=== PATIENT | female | born 1970 | race Asian ===

== ENCOUNTER 2019-03-08 12:34 | Emergency (ER) | payer OTHER ==
[~2019-03-08] VITALS: Ht 152.4 cm; Wt 54.0 kg
--- NOTE | 2019-03-08 14:42 | PHYS DOC ---
Past Medical History Past Medical History: No Pertinent History Alcohol Use: None Drug Use: None Adult General Chief Complaint Chief Complaint: ABDOMINAL PAIN HPI HPI Patient is a 48 year old patient without history of medical problems who p resents with pain of abdominal pain. Patient complaining of intermittent episodes of right lower quadrant as a discomfort feeling for the last 1 week that usually last for several hours and radiated to her back. Patient complaining of anorexia without fever, urinary symptoms, diarrhea and constipati on, nausea and vomiting, history of the same problem. Patient complaining of upper respiratory symptoms including cough and nasal congestion and sore throat for the last 4 or 5 days and states the pain getting worse with cough and movement. Patient rated her pain between 6 and 10. Review of Systems Review of Systems Constitutional: Denies fever or chills [] Eyes: Denies change in visual acuity, redness, or eye pain [] HENT: Postnasal congestion or sore throat Respiratory: Reports cough, denies shortness of breath Cardiovascular: No additional information not addressed in HPI [] GI: Reports abdominal pain, denies nausea, vomiting, bloody stools or diarrhea [] : Denies dysuria or hematuria [] Musculoskeletal: Denies back pain or joint pain [] Integument: Denies rash or skin lesions [] Neurologic: Denies headache, focal weakness or sensory changes [] Endocrine: Denies polyuria or polydipsia [] All other systems were reviewed and found to be within normal limits, except as documented in this note. Current Medications Current Medications Current Medications Medications (Trade) Dose Ordered Sig/Jett Start Time Stop Time Status Last Admin Dose Admin Ketorolac Tromethamine (Toradol 30mg Vial) 30 mg 1X ONCE 03/08/19 15:00 03/08/19 15:01 DC 03/08/19 15:33 30 MG Ondansetron HCl (Zofran) 4 mg 1X ONCE 03/08/19 15:00 03/08/19 15:01 DC 03/08/19 15:33 4 MG Sodium Chloride 1,000 ml @ 1,000 mls/hr Q1H 03/08/19 15:00 03/08/19 15:59 DC 03/08/19 15:34 1,000 MLS/HR Allergies Allergies Allergies Coded Allergies Type Severity Reaction Last Updated Verified No Known Drug Allergies 03/08/19 No Physical Exam Physical Exam Constitutional: Well developed, well nourished, mild distress, non-toxic appearance. [] HENT: Normocephalic, atraumatic, bilateral external ears normal, oropharynx moist, no oral exudates, nose normal. [] Eyes: PERRLA, EOMI, conjunctiva normal, no discharge. [] Neck: Normal range of motion, no tenderness, supple, no stridor. [] Cardiovascular:Heart rate regular rhythm, no murmur [] Lungs & Thorax: Bilateral breath sounds clear to auscultation [] Abdomen: Bowel sounds normal, soft, right lower quadrant guarding, no tenderness, no masses, no pulsatile masses. [] Skin: Warm, dry, no erythema, no rash. [] Back: No tenderness, no CVA tenderness. [] Extremities: No tenderness, no cyanosis, no clubbing, ROM intact, no edema. [] Neurologic: Alert and oriented X 3, normal motor function, normal sensory function, no focal deficits noted. [] Psychologic: Affect normal, judgement normal, mood normal. [] Current Patient Data Vital Signs Vital Signs Date Time Temp Pulse Resp B/P (MAP) Pulse Ox O2 Delivery O2 Flow Rate FiO2 03/08/19 16:28 69 128/64 (85) 96 Room Air 03/08/19 13:22 98.2 16 98.2 Lab Values Laboratory Tests Test 03/08/19 13:25 03/08/19 15:15 03/08/19 15:20 Urine Collection Type Unknown Urine Color Yellow Urine Clarity Clear Urine pH 5.5 Urine Specific [place] 1.025 Urine Protein Negative mg/dL (NEG-TRACE) Urine Glucose (UA) >=1000 mg/dL (NEG) Urine Ketones (Stick) Negative mg/dL (NEG) Urine Blood Negative (NEG) Urine Nitrite Negative (NEG) Urine Bilirubin Negative (NEG) Urine Urobilinogen Dipstick 0.2 mg/dL (0.2 mg/dL) Urine Leukocyte Esterase Negative (NEG) Urine RBC 0 /HPF (0-2) Urine WBC 0 /HPF (0-4) Urine Squamous Epithelial Cells Few /LPF Urine Bacteria 0 /HPF (0-FEW) Influenza Type A Antigen Negative (NEGATIVE) Influenza Type B Antigen Negative (NEGATIVE) White Blood Count 3.0 x10^3/uL (4.0-11.0) L Red Blood Count 4.77 x10^6/uL (3.50-5.40) Hemoglobin 14.0 g/dL (12.0-15.5) Hematocrit 41.9 % (36.0-47.0) Mean Corpuscular Volume 88 fL (79-100) Mean Corpuscular Hemoglobin 29 pg (25-35) Mean Corpuscular Hemoglobin Concent 34 g/dL (31-37) Red Cell Distribution Width 12.2 % (11.5-14.5) Platelet Count 237 x10^3/uL (140-400) Neutrophils (%) (Auto) 41 % (31-73) Lymphocytes (%) (Auto) 43 % (24-48) Monocytes (%) (Auto) 8 % (0-9) Eosinophils (%) (Auto) 7 % (0-3) H Basophils (%) (Auto) 1 % (0-3) Neutrophils # (Auto) 1.2 x10^3/uL (1.8-7.7) L Lymphocytes # (Auto) 1.3 x10^3/uL (1.0-4.8) Monocytes # (Auto) 0.2 x10^3/uL (0.0-1.1) Eosinophils # (Auto) 0.2 x10^3/uL (0.0-0.7) Basophils # (Auto) 0.0 x10^3/uL (0.0-0.2) Sodium Level 136 mmol/L (136-145) Potassium Level 4.1 mmol/L (3.5-5.1) Chloride Level 99 mmol/L (98-107) Carbon Dioxide Level 30 mmol/L (21-32) Anion Gap 7 (6-14) Blood Urea Nitrogen 10 mg/dL (7-20) Creatinine 0.6 mg/dL (0.6-1.0) Estimated GFR (Cockcroft-Gault) 106.3 BUN/Creatinine Ratio 17 (6-20) Glucose Level 258 mg/dL (70-99) H Calcium Level 9.4 mg/dL (8.5-10.1) Total Bilirubin 0.2 mg/dL (0.2-1.0) Aspartate Amino Transferase (AST) 47 U/L (15-37) H Alanine Aminotransferase (ALT) 38 U/L (14-59) Alkaline Phosphatase 119 U/L (46-116) H Total Protein 7.8 g/dL (6.4-8.2) Albumin 3.4 g/dL (3.4-5.0) Albumin/Globulin Ratio 0.8 (1.0-1.7) L Lipase 151 U/L (73-393) Laboratory Tests 03/08/19 15:20 Laboratory Tests 03/08/19 15:20 EKG EKG [] Radiology/Procedures Radiology/Procedures [][facility] [address] [place] [address] IMAGING REPORT Signed PATIENT: ELIZABETH NIXON ACCOUNT: [id number] : 1970 LOCATION: ER AGE: 48 SEX: F EXAM STATUS: REG ER ORD. PHYSICIAN: YESIKA OMER MD REASON: intermittent episodes of right lower quadrant for one week PROCEDURE: CT ABDOMEN PELVIS WO CONTRAST EXAM: Abdomen and pelvis CT without intravenous contrast. HISTORY: Pain. TECHNIQUE: Computed tomographic images of the abdomen and pelvis were obtained without contrast. Multiplanar reformatting was performed. *One or more of the following individualized dose reduction techniques were utilized for this examination: 1. Automated exposure control. 2. Adjustment of the mA and/or kV according to patient size. 3. Use of iterative reconstruction technique. COMPARISON: None. FINDINGS: Evaluation of the lower thorax is unremarkable. No hepatic lesion is seen. The gallbladder, pancreas and adrenal glands are unremarkable. There is a splenule adjacent to an otherwise unremarkable spleen. There are few punctate faint foci of increased density within the left kidney, without convincing nephrolithiasis or nephrocalcinosis. There is no evidence of hydronephrosis. The bladder is unremarkable. The uterus is unremarkable. No adnexal mass is seen. There is no evidence of appendicitis. There is no evidence of bowel obstruction. The aorta is normal in caliber. There is no lymphadenopathy. There is no suspicious osseous lesion. IMPRESSION: No convincing acute abdominal or pelvic finding. Electronically signed by: Emmanuelle Downs MD (03/08/2019 3:01 PM) [facility] DICTATED and SIGNED BY: EMMANUELLE DOWNS MD DATE: 03/08/19 1501 Course & Med Decision Making Course & Med Decision Making Pertinent Labs and Imaging studies reviewed. (See chart for details) Evaluation of patient in ER showed 48-year-old female patient with complaining of losing weight for several months and drinking frequently and URI symptom associated with right lower quadrant pain for 1 week. Patient had blood sugar of 256 without history of diabetes. Patient treated with IV fluids and pain medication in ER and felt better. Metformin was started and patient was advised to follow-up with primary care physician in follow-up with diabetic diet. I've spoken with the patient and/or caregivers. I've explained the patient's condition, diagnosis and treatment plan based on information available to me at this time. I've answered the patient's and/or caregivers questions and addressed any concerns. The patient and/or caregivers have a good understanding the patient's diagnosis, condition and treatment plan as can be expected at this point. Vital signs have been stabilized. The patient's condition is stable for discharge from the emergency department. The patient will pursue further outpatient evaluation with her primary care provider or other designated consulting physician as outlined in the discharge instructions. Patient and/or caregivers are agreeable to this plan of care and follow-up instructions have been explained in detail. The patient and/or caregivers have received these instructions in written format and expressed understanding of these discharge instructions. The patient and her caregivers are aware that if any significant change in condition or worsening of symptoms should prompt him to immediately return to this of the closest emergency department. If an emergent department is not readily available I would encoura fern him to call 911. Corazon Disclaimer Corazon Disclaimer This electronic medical record was generated, in whole or in part, using a voice recognition dictation system. Departure Departure Impression: Primary Impression: Elevated blood sugar level Additional Impressions: Abdominal wall pain in right lower quadrant Acute bronchitis Disposition: HOME, SELF-CARE (at 1635) Condition: IMPROVED Referrals: NO PCP (PCP) Patient Instructions: 1800 Calorie Diet for Diabetes Meal Planning, Acute Bronchitis, Diabetes Meal Planning Guide, Diabetes and Exercise-SportsMed, Hyperglycemia, Muscle Strain Additional Instructions: Drink plenty of liquids Follow-up with your primary care physician in 2-3 days Return to ER if not getting better Scripts Azithromycin (ZITHROMAX) 250 Mg Tablet 250 MG PO as directed for ANTI-BIOTIC, #6 TAB 0 Refills Take 2 PO x 1 days Then take 1 PO q 24 hour for the next 4 days Prov: YESIKA OMER MD 03/08/19 Tramadol Hcl (ULTRAM) 50 Mg Tablet 50 MG PO Q6HRS PRN for PAIN, #14 TAB 0 Refills Prov: YESIKA OMER MD 03/08/19 Benzonatate (TESSALON PERLE) 100 Mg Capsule 1 CAP PO TID for cough, #21 CAP Prov: YESIKA OMER MD 03/08/19 Metformin Hcl (METFORMIN HCL) 500 Mg Tablet 500 MG PO DAILY for ANTI-DIABETIC, #30 TAB 0 Refills Prov: YESIKA OMER MD 03/08/19 Problem Qualifiers Additional Impressions: Acute bronchitis Bronchitis organism: unspecified organism Qualified Codes: J20.9 - Acute bronchitis, unspecified YESIKA OMER MD Mar 08, 2019 14:42
[2019-03-08 14:45] LABS: BILIRUBIN,URINE NEGATIVE (NEG); CLARITY,URINE CLEAR; COLOR,URINE YELLOW; NITRITE,URINE NEGATIVE (NEG); PH,URINE 5.5; PROTEIN,URINE NEGATIVE (NEG-TRACE); UROBILINOGEN,URINE 0.2 mg/dL (0.2 mg/dL)
[2019-03-08 14:55] LABS: SQUAMOUS EPITHELIAL CELL,UR FEW /LPF
[2019-03-08 14:57] LABS: BACTERIA,URINE 0 /HPF (0-FEW); RBC,URINE 0 /HPF (0-2); WBC,URINE 0 /HPF (0-4)
--- NOTE | 2019-03-08 15:05 | RAD ---
EXAM: Abdomen and pelvis CT without intravenous contrast. HISTORY: Pain. TECHNIQUE: Computed tomographic images of the abdomen and pelvis were obtained without contrast. Multiplanar reformatting was performed. *One or more of the following individualized dose reduction techniques were utilized for this examination: 1. Automated exposure control. 2. Adjustment of the mA and/or kV according to patient size. 3. Use of iterative reconstruction technique. COMPARISON: None. FINDINGS: Evaluation of the lower thorax is unremarkable. No hepatic lesion is seen. The gallbladder, pancreas and adrenal glands are unremarkable. There is a splenule adjacent to an otherwise unremarkable spleen. There are few punctate faint foci of increased density within the left kidney, without convincing nephrolithiasis or nephrocalcinosis. There is no evidence of hydronephrosis. The bladder is unremarkable. The uterus is unremarkable. No adnexal mass is seen. There is no evidence of appendicitis. There is no evidence of bowel obstruction. The aorta is normal in caliber. There is no lymphadenopathy. There is no suspicious osseous lesion. IMPRESSION: No convincing acute abdominal or pelvic finding. Electronically signed by: Emmanuelle Gerber MD (03/08/2019 3:01 PM) [facility]
[2019-03-08] MEDS: KETOROLAC 30 MG/ML VIAL. IV ONE (15:33)
[2019-03-08] MEDS: ONDANSETRON PF 4 MG/2 ML VIAL. IV ONE (15:33)
[2019-03-08] MEDS: IV NORMAL SALINE 1000ML BAG 1,000 ML IV SCH (15:34)
[2019-03-08 15:39] LABS: BASO % 1 % (0-3); EOS # 0.2 x10^3/uL (0.0-0.7); EOS % 7 % (0-3); HEMATOCRIT 41.9 % (36.0-47.0); LYMPH # 1.3 x10^3/uL (1.0-4.8); LYMPH % 43 % (24-48); MEAN CORPUSCULAR HEMOGLOBIN 29 pg (25-35); MEAN CORPUSCULAR HGB CONC 34 g/dL (31-37); MEAN CORPUSCULAR VOLUME 88 fL (79-100); MONO # 0.2 x10^3/uL (0.0-1.1); MONO % 8 % (0-9); NEUT # 1.2 x10^3/uL (1.8-7.7); NEUT % 41 % (31-73); PLATELET COUNT 237 x10^3/uL (140-400); RED BLOOD COUNT 4.77 x10^6/uL (3.50-5.40); RED CELL DISTRIBUTION WIDTH 12.2 % (11.5-14.5)
[2019-03-08 15:52] LABS: CALCIUM 9.4 mg/dL (8.5-10.1); CREATININE 0.6 mg/dL (0.6-1.0); GFR 106.3; POTASSIUM 4.1 mmol/L (3.5-5.1)
[2019-03-08 15:56] LABS: TOTAL BILIRUBIN 0.2 mg/dL (0.2-1.0); TOTAL PROTEIN 7.8 g/dL (6.4-8.2)
[2019-03-08 16:18] LABS: INFLUENZA A PATIENT NEGATIVE (NEGATIVE); INFLUENZA B PATIENT NEGATIVE (NEGATIVE)
[2019-03-08 16:19] LABS: ALBUMIN 3.4 g/dL (3.4-5.0); ALBUMIN/GLOBULIN RATIO 0.8 (1.0-1.7)
[2019-03-08 16:28] VITALS: BP 128/64
[2019-03-08] MEDS ORDERED: AZIT250T PO (16:38)
[2019-03-08] MEDS ORDERED: METF500T16 PO (16:38)
[2019-03-08] MEDS ORDERED: BENZ100C PO (16:38)
[2019-03-08] MEDS ORDERED: TRAM-48 PO (16:38)
== END 2019-03-08 16:50 | disposition home or self-care (01) ==
LOC: ER 12:34
DX: R10.31 Right lower quadrant pain (principal); J20.9 Acute bronchitis, unspecified; R73.09 Other abnormal glucose; R19.7 Diarrhea, unspecified; R11.2 Nausea with vomiting, unspecified
CPT/HCPCS: 36415; 74176; 80053; 81001; 83690; 85025; 87804; 96361; 96374; 96375; 99285; J1885; J2405; J7030